=== PATIENT | female | born 1935 | race Caucasian/White ===

== ENCOUNTER 2025-09-28 11:08 | Emergency (ER) | payer MEDICARE, SELFPAY ==
[2025-09-28] VITALS (12 sets, daily range): BP systolic 101–150; BP diastolic 49–90; PULSE 79–131; RESP 15–20; TEMP 36.6–38; O2SAT 94–97; BMI 24.1
--- NOTE | ~2025-09-28 | XR_ITS ---
EXAMINATION: XR CHEST CLINICAL INFORMATION: cough COMPARISON: None available. TECHNIQUE: 2 views of the chest were obtained. FINDINGS: No significant abnormality is noted involving the heart, lungs, mediastinum, bony thorax or soft tissues. Catheter traversing the base of the neck and chest right of midline is probably related to a IT SOFTWARE [employer]INEER shunt. XR/XR chest 2V IMPRESSION: No acute disease. Electronically signed by: Den Arroyo MD 09/28/2025 01:53 PM EST
--- NOTE | ~2025-09-28 | MR_ITS ---
CLINICAL HISTORY: vasogenic edema ?underlying mass vs CVA? best obtainable, pt motion on images, blades and repeats attempted MR of the brain with and without contrast Comparison: CT/REG/MI/SR - CT HEAD WITHOUT IV CONTRAST - 09/28/25 12:09 EST Findings: Mass in the right middle cranial fossa measuring 3.8 x 3.0 x 3.6 cm favored to be extra-axial. The mass is isointense to hypointense to nguyen matter on T1 weighted images. It is mildly hyperintense on FLAIR/T2 weighted images. The mass demonstrates mild increased signal on the DWI images and mild decreased signal on the ADC map which likely indicates restricted diffusion. There is homogeneous enhancement on the postcontrast images. There is associated vasogenic edema in the right temporal lobe. Question of a dural tail best appreciated on the postcontrast images. No acute infarction, hemorrhage or herniation. There are few foci of susceptibility on the SWI images which could be the sequela of hypertensive microangiopathy. There is susceptibility in the region of encephalomalacia in the left hemisphere, likely indicating prior hemorrhage. No hydrocephalus. Ex vacuo dilatation of the atrium and posterior horn of the left lateral ventricle. Ventriculoperitoneal shunt catheter which enters via a right frontal yesika hole with the tip terminating in the left lateral ventricle. Mild amount gliosis around the catheter tract. Increased signal intensity is seen in the deep and periventricular white matter on the T2/FLAIR sequences, which most likely represents the sequela of moderate to severe chronic small vessel ischemic disease. Cystic encephalomalacia in the left parietal, occipital and temporal lobes. No extra-axial fluid collection. Unremarkable sella. Intact flow voids. Normal orbits. Trace mucosal thickening in the maxillary sinuses and bilateral ethmoid air cells. Mild amount of fluid signal within right mastoid air cells. The other paranasal sinuses and left mastoid air cells are clear. Question of signal abnormality in the left skull base involving the sphenoid bone may indicate osseous invasion, however abnormality is not seen on the CT. Impression: Right middle cranial fossa 3.8 cm extra-axial mass with restricted diffusion and associated vasogenic edema. A higher grade meningioma could be considered. Lymphoma and other malignant etiologies may also be considered. This document has been electronically signed by: Lisa Bill MD on 09/28/2025 19:31:31
--- NOTE | ~2025-09-28 | XR_ITS ---
EXAMINATION: XR KNEE, LEFT CLINICAL INFORMATION: knee pain, fall COMPARISON: None available. TECHNIQUE: AP and lateral views of the left knee. FINDINGS: Small amount joint fluid is visible. There is severe narrowing of the medial joint space. There is mild narrowing of the lateral joint space. There is chondrocalcinosis in the lateral greater than medial meniscus. Moderate size marginal osteophyte is are evident in the lateral compartment. There is also degenerative cystic change near the medial joint line. Multifocal atherosclerotic calcifications are present in the posterior thigh. No fracture is identified. 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 Electronically signed by: Den Arroyo MD 09/28/2025 01:52 PM EST
--- NOTE | ~2025-09-28 | CT_ITS ---
EXAMINATION: CT HEAD WITHOUT CONTRAST CLINICAL INFORMATION: Syncope, GROUNDMAN/LINEMAN shunt. COMPARISON: 12/05/2018 CT head. TECHNIQUE: Contiguous axial imaging was performed from the skull base to vertex without intravenous administration of contrast. This CT examination was performed using dose optimization techniques as appropriate, variously including the following: *Automated exposure control *Adjustment of mA and/or kV according to patient size (this includes techniques or standardized protocols for targeted exams where dose is matched to indication/reason for exam; i.e. extremities or head) *Use of iterative reconstruction technique FINDINGS: Right transfrontal ventriculostomy catheter is in place, with tip traversing the frontal horn of the left lateral ventricle and terminating at the foramen of Monro. Mild encephalomalacia is identified surrounding the catheter tract in the right frontal lobe. Compared with the prior examination, there is focal right temporal white matter hypoattenuation, which could represent edema, was not previously seen on the prior exam in this location. Underlying lesion is a possibility. 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 There is mild ex vacuo dilatation of the left lateral ventricle, particularly the body and atrium. There is no intracranial hemorrhage, and there is no extra-axial fluid collection. There is no mass affect. No CT evidence of acute territorial infarct. Ventricles, sulci, and cisterns are otherwise mildly diffusely prominent, in keeping with age-related cerebral and cerebellar volume loss. No hydrocephalus. No midline shift. Negative hyperdense MCA sign. Negative insular ribbon sign. Patchy periventricular and deep white matter hypoattenuation is consistent with moderate small vessel ischemic changes. Normal pituitary. Mild atheromatous calcification of the bilateral carotid siphons and V4 segments vertebral arteries bilaterally. Globes and orbital contents image normally. There are bilateral lens replacements. No extracranial soft tissue abnormalities. The paranasal sinuses, mastoid air cells, and tympanic cavities are normally aerated. No suspicious bony abnormalities. Ledger hole right frontal region. There are no acute fractures evident. CT/CT head/brain wo IV con IMPRESSION: 1. New region of possible vasogenic edema in the right temporal lobe, not seen in 2019 and possibly collections representative of an underlying lesion. This would be an unusual location for progressing white matter small vessel ischemic changes. No associated mass effect. Enhanced MRI may be of benefit for further elucidation. 2. Otherwise, chronic changes without acute intracranial abnormality. Electronically signed by: Vivek Gee MD 09/28/2025 12:45 PM EST
--- NOTE | 2025-09-28 11:24 | ED_ITS ---
[facility] - General Adult General Chief complaint: Syncope Stated complaint: passed out Time Seen by Provider: 09/28/25 11:23 Source: patient Mode of arrival: ambulatory Limitations: no limitations History of Present Illness ED Provider: Dr. Garvey [facility] narrative: This is a 89-year-old female history of BLUE SPLIT TRIMMER shunt placement, hypertension, CVA in the past presented hospital today for evaluation of a fall. Patient had a witnessed syncopal episode earlier today. Patient stated that she has been sick with a upper respiratory infection with nasal congestion and sore throat and a cough for 1 day now. Last night she had a syncopal episode. However this morning when patient woke up she also had another syncopal episode in front of her daughter. She has not complain of any chest pain or palpitation. Denies any headache currently. Not complaining of any diarrhea or vomiting. Denies any abdominal pain. Denies any dysuria. Related Data Allergies Allergy/AdvReac Type Severity Reaction Status Date / Time amoxicillin Allergy Unknown Unknown Verified 09/28/25 14:32 erythromycin base Allergy Unknown Anaphylaxis,difficulty Unverified 09/28/25 14:32 (ERYTHROMYCIN BASE) breathing mold (MOLD) Allergy Unknown Nasal Unverified 09/28/25 14:32 congestion ragweed pollen (RAGWEED) Allergy Unknown Nasal Unverified 09/28/25 14:32 congestion Review of Systems 2 Review of Systems: Pertinent review of systems as mentioned in [facility]. All other system otherwise negative. [facility] Past Medical History [facility] Narrative: Medical history as mentioned in [facility] Social History Social History Advance Directives: No Advance Directives Information Provided: Yes Physical Exam ED Exam Exam: General: Pleasant, no distress, interacting appropriately Head: Normacephalic, atraumatic ENT: oral mucosa dry, neck supple, no tracheal deviation Cardiovascular: Tachycardic rate, regular rhythm, no murmurs, rubbing, gallops Respiratory: CTAB, no wheeze, rales, rhonchi Gastrointestinal: Soft, non distended, non tender, non guarding Neurological: Awake and alert, no facial droop noted, no focal neurological deficits Skin: Warm and dry Psychiatric: Appropriate mood and thoughts Vital Signs: Vital Signs - 24 hr 09/28/25 11:37 09/28/25 12:29 09/28/25 14:23 Temperature 99.4 F Pulse Rate 131 H 130 H 99 Respiratory Rate 15 16 16 Blood Pressure 122/75 136/79 101/54 L Pulse Oximetry 95 95 Oxygen Delivery Method Room Air Room Air BMI result Body Mass Index 24.1 Medications Administered Generic Name Dose Route Start Last Admin Trade Name Katia PRN Reason Stop Dose Admin Lactated Ringer's 1,000 mls @ 999 mls/hr 09/28/25 14:30 09/28/25 14:23 Lr IV 09/28/25 15:30 999 mls/hr .Q1H1M JOSÉ MIGUEL Administration Discontinued Medications Generic Name Dose Route Start Last Admin Trade Name Katia PRN Reason Stop Dose Admin Acetaminophen 975 mg 09/28/25 11:41 09/28/25 12:17 Acetaminophen 325 Mg Tablet PO 09/28/25 11:42 975 mg ONCE ONE Administration Lactated Ringer's 1,000 mls @ 999 mls/hr 09/28/25 11:45 09/28/25 14:00 Lr IV 09/28/25 12:45 Infused .Q1H1M JOSÉ MIGUEL Infusion Medical Decision Making Medical Decision Making MDM Narrative: This is a 89-year-old female history of CVA [employer]MER shunt presented hospital today for a syncopal episode. We will obtain a EKG to assess for any signs of cardiac arrhythmia, we will also obtain a CT head to evaluate for any signs of hydrocephalus or intracranial process that may have caused her syncopal episode. We will obtain a chest x-ray. Patient does feel warm to me on evaluation. We will plan to give patient some Tylenol. A L IV fluid be provided the patient. Knee x-ray will be obtained for left knee pain from the fall. She patient is able to have full range of motion of the left lower extremity. Appears to be moving bilateral upper and lower extremities. We will obtain a CBC CMP lactic acid and blood culture for swab for COVID flu and RSV as well. We will screen patient for sepsis. She does not meet sepsis or SIRS criteria at this time. Patient's was able to bear weight on her left lower extremity after the fall. I have low suspicion for fracture. EKG shows atrial fibrillation rate at 121. New onset AFib. Patient's heart rate is altered unable to low 100s to 120. Does have leukocytosis 11.0. Tachycardic with a AFib, and elevated lactic acid at 2.1. I have low suspicion for sepsis for the patient however we will plan to cover patient with IV Levaquin. I think this is new onset AFib. Possible stroke. Given her syncopal history we will plan to admit patient for further observation. AFib rate is controlled at this time. Chest x-ray is unremarkable. Knee x-ray did not show any signs of fracture. Patient will be admitted to the hospital. I did attempted to find the patient's BLUE SPLIT TRIMMER shunt model. Unfortunately there was no card for the model. In the note from [facility]. It saids Delta 1.5. This was relay to MRI team. I did discuss with family and patient about emptying MRI to rule out stroke versus intracranial mass. They are amenable to this. Patient does have anxiety going to MRI machine. However we will need to figure out the exact mottled with a BLUE SPLIT TRIMMER shunt on prior to the MRI per MRI team recommendation. Patient was loaded with aspirin. Differential Diagnosis Differential Diagnoses: The differential diagnosis associated with the presentation includes Syncope, cardiac arrhythmia, dehydration, COVID flu RSV, BLUE SPLIT TRIMMER shunt malfunction, knee fracture Lab Data MDM Lab Attestation statement: I reviewed the patient's lab results. 09/28/25 12:59 09/28/25 12:59 Labs: Lab Results 09/28/25 Range/Units 12:59 WBC 11.0 H (4.8-10.8) X10*3/uL RBC 5.02 (4.20-5.50) X10*6/uL Hgb 14.8 (12.0-16.0) g/dl Hct 45.2 (37.0-47.0) % MCV 90.0 (80.0-98.0) fL MCH 29.5 (27.0-33.0) pg MCHC 32.7 (31.0-35.0) g/dl RDW 12.8 (11.0-16.0) % Plt Count 200 (160-400) X10*3/uL MPV 10.0 (9.4-12.3) fL Immature Gran % (Auto) 0.4 (0.0-0.4) % Neut % (Auto) 83.9 H (45-73) % Lymph % (Auto) 7.1 L (20-40) % [place] % (Auto) 7.9 (2-11) % Eos % (Auto) 0.0 (0-4) % Baso % (Auto) 0.7 (0-2) % Lymph # (Auto) 0.8 L (1.2-4.9) X10*3/uL [place] # (Auto) 0.9 (0.1-1.2) X10*3/uL Eos # (Auto) 0.0 (0.0-0.4) X10*3/uL Baso # (Auto) 0.1 (0.0-0.2) X10*3/uL Abs Immat Gran (auto) 0.04 H (0.00-0.03) X10*3/uL Absolute Neuts (auto) 9.2 H (2.0-8.3) x10*3/uL Absolute Nucleated RBC 0.000 (0.0-0.012) X10*3/uL Nucleated RBC % (auto) 0.0 (0.0-0.2) /100WBC Sodium 139 (135-145) mmol/L Potassium 4.0 (3.3-5.1) mmol/L Chloride 102 (96-108) mmol/L Carbon Dioxide 29 (22-29) mmol/L Anion Gap 12 (12-20) BUN 19 H (9-16) mg/dL Creatinine 0.98 (0.5-1.4) mg/dL Estim Creat Clear Calc 32.0 Estimated GFR 54 Random Glucose 119 H (60-115) mg/dL Lactic Acid 2.1 H* (0.5-2.0) mmol/L Calcium 9.1 (8.4-10.2) mg/dL Magnesium 1.9 (1.6-2.6) mg/dL Total Bilirubin 0.6 (0.0-1.0) mg/dL AST 25 (5-31) U/L ALT 18 (0-31) U/L Alkaline Phosphatase 91 (39-117) U/L Total Protein 7.2 (6.5-8.0) g/dL Albumin 4.5 (3.5-5.0) g/dL TSH 0.68 (0.32-4.0) uIU/mL Independent Interpretation I performed an independent interpretation of an: Plain X-Ray and CT Scan Radiology Impression Discussion of test interpretation with radiology: I have reviewed the radiologist's reading. Chronic Conditions Patient?s care impacted by: Hypertension CVA Critical Care Time Critical Care Time Critical Care Time: Yes Total Critical Care Time: 40 Attestation: Time is exclusive of separately billable procedures. Time includes: direct patient care, patient reassessment, coordination of patient care, interpretation of data (laboratory data, pulse oximetry, arterial blood gases and chest xrays), review of patient's medical records, medical consultation and documentation of patient care. Procedures excluded from critical care time: central intravenous line placement and electrocardiography. Discharge Plan Discharge Clinical Impression: Atrial fibrillation with RVR Syncope Qualifiers: Syncope type: unspecified Qualified Code(s): R55 - Syncope and collapse Patient Disposition: Admitted As Inpatient Print Language: Azeri
--- NOTE | 2025-09-28 11:39 | ECG_ITS ---
Test Reason : SYNCOPE Blood Pressure : */* mmHG Vent. Rate : 121 BPM Atrial Rate : * BPM P-R Int : * ms QRS Dur : 78 ms QT Int : 322 ms P-R-T Axes : * 10 36 degrees QTcB Int : 457 ms Atrial fibrillation with rapid ventricular response with premature ventricular or aberrantly conducted complexes Low voltage QRS Abnormal ECG When compared with ECG of 31-Aug-2015 08:57, Atrial fibrillation has replaced Sinus rhythm Vent. rate has increased by 68 bpm Criteria for Septal infarct are no longer Present T wave amplitude has decreased in Anterolateral leads Referred By: Cat Garvey Electronically Signed By: LISA GIFFORD MD
[2025-09-28] MEDS: Lactated Ringers 1,000 ML 999 ML IV ×2 (11:45→14:23)
--- NOTE | 2025-09-28 11:51 | PC.NURSE ---
Pt A&O X4 VSS Seen by provider. Connected to full monitor- ST no ectopy- provider aware. Pt denies CP SOB N/V, family states moving bowels more frequently (but formed) . IVinitiated. family at bedside
[2025-09-28 13:03] LABS: MANUAL DIFF FLAG NO
[2025-09-28 13:04] LABS: Hematocrit 45.2 % (37.0-47.0); Hemoglobin 14.8 g/dl (12.0-16.0); Imm Gran Abs Auto 0.04 X10*3/uL (0.00-0.03); Imm Gran Pct Auto 0.4 % (0.0-0.4); Lymphocytes Absolute Auto 0.8 X10*3/uL (1.2-4.9); Mean Corpuscular HGB Conc 32.7 g/dl (31.0-35.0); Mean Corpuscular Hemoglobin 29.5 pg (27.0-33.0); Mean Corpuscular Volume 90.0 fL (80.0-98.0); NRBC Abs Auto 0.000 X10*3/uL (0.0-0.012); NRBC Pct Auto 0.0 /100WBC (0.0-0.2); Platelet Count 200 X10*3/uL (160-400); Red Blood Count 5.02 X10*6/uL (4.20-5.50); White Blood Count 11.0 X10*3/uL (4.8-10.8)
[2025-09-28 13:25] LABS: Alanine Aminotransferase 18 U/L (0-31); Albumin Level 4.5 g/dL (3.5-5.0); Alkaline Phosphatase 91 U/L (39-117); Anion Gap 12 (12-20); Aspartate Amino Transferase 25 U/L (5-31); Blood Urea Nitrogen 19 mg/dL (9-16); Calcium 9.1 mg/dL (8.4-10.2); Carbon Dioxide 29 mmol/L (22-29); Chloride 102 mmol/L (96-108); Creatinine Clr Calc Pharmacy 32.0; Estimated Glomerular Filt Rate 54; Magnesium 1.9 mg/dL (1.6-2.6); Potassium 4.0 mmol/L (3.3-5.1); Sodium 139 mmol/L (135-145); Total Protein 7.2 g/dL (6.5-8.0)
[2025-09-28 13:39] LABS: Thyroid Stimulating Hormone 0.68 uIU/mL (0.32-4.0)
--- NOTE | 2025-09-28 14:24 | PC.NURSE ---
Pt remains A&O X3 FR improved by now hypotensive. Provider notified - states to hold cardizem and give IV bolus again. No complaints-
--- NOTE | 2025-09-28 14:38 | PC.NURSE ---
Pt remains A&O X4 VSS with Iv bolus infusing- No complaints- no distress.
[2025-09-28 14:50] LABS: Resp Syncy Virus RNA Qual PCR NEGATIVE (Negative); SARS COV2 PCR INHOUSE NEGATIVE (Negative)
[2025-09-28 15:01] LABS: Reflex Lactate? Lactic Acid Added
--- NOTE | 2025-09-28 15:05 | PHA.MEDREC ---
Pharmacy Consult ? Medication Reconciliation Pharmacy has completed the medication reconciliation. Spoke with family at bedside, they presented a list.
--- NOTE | 2025-09-28 15:18 | PM.IMHP ---
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 According to the patient's daughter the patient reported that Saturday she started to feel unwell with upper respiratory symptoms then Saturday night or at some point Saturday morning the patient had a fall but she could not remember when. Apparently the patient's daughter called her and the patient did not seem like herself. The patient's friend went to see the patient and the patient went to the bathroom and apparently had a syncopal episode while on the toilet. Her friend was able to walker to the couch and an ambulance was called. EMS check vital signs but the patient declined to go to the hospital. Sometime later the patient went to the bathroom again and had the same syncopal episode on the toilet. By then her daughter had showed up and EMS was then called. In the ED, Lactic acid was noted to be elevated 2.1, influenza A positive, head CT showed new region of possible vasogenic edema in the right temporal lobe with no associated mass effect otherwise chronic changes without acute intracranial abnormality. Patient does have a history of a AMBULANCE ATTENDANT shunt after previous stroke about 10 years ago. MRI was ordered and plan is to admit patient for syncope, influenza. Review of Systems Review of Systems: Denies any recent fever chills or decrease in appetite respiratory denies any shortness of breath or cough cardiovascular denied chest pain gastrointestinal denies any dysphagia abdominal pain nausea vomiting or diarrhea genitourinary denies any dysuria frequency or hematuria musculoskeletal denies any joint pain or swelling neuropsych denies any weakness or seizures all other systems reviewed are negative [facility] Medical History (Updated 09/28/25 @ 15:22 by Juliet Tanner NP) Stroke Hypertension Surgical History (Updated 09/28/25 @ 15:22 by Juliet Tanner NP) S/P AMBULANCE ATTENDANT shunt Social History Advance Directives: No Advance Directives Information Provided: Yes Meds Allergies Allergy/AdvReac Type Severity Reaction Status Date / Time amoxicillin Allergy Unknown Unknown Verified 09/28/25 14:32 erythromycin base Allergy Unknown Anaphylaxis,difficulty Verified 09/28/25 14:58 (ERYTHROMYCIN BASE) breathing mold (MOLD) Allergy Unknown Nasal Verified 09/28/25 14:58 congestion ragweed pollen (RAGWEED) Allergy Unknown Nasal Verified 09/28/25 14:58 congestion Active Medications: Current Medications Lactated Ringer's (Lr) 1,000 mls @ 999 mls/hr IV .Q1H1M JOSÉ MIGUEL Stop: 09/28/25 15:30 Last Admin: 09/28/25 14:23 Dose: 999 mls/hr Levofloxacin (Levaquin) 500 mg in 100 mls @ 100 mls/hr IV ONCE ONE Stop: 09/28/25 15:32 Home Medications ?Medication ?Instructions ?Recorded ?Confirmed ?Last Taken ?Type amlodipine 2.5 mg tablet 2.5 mg PO DAILY 09/28/25 09/28/25 09/27/25 History docusate sodium 100 mg capsule 100 mg PO DAILY 09/28/25 09/28/25 09/27/25 History losartan 100 mg tablet 100 mg PO DAILY 09/28/25 09/28/25 09/27/25 History metoprolol succinate 50 mg 50 mg PO DAILY 09/28/25 09/28/25 09/27/25 History tablet,extended release 24 hr vitamins A,C,U-oxog-pqscxa 4,296 1 cap PO DAILY 09/28/25 09/28/25 09/28/25 History mcg-226 mg-90 mg capsule (PreserVision AREDS) Physical Exam Vital Signs and Narrative: Vital Signs: Last Vital Signs Temp 99.3 F 09/28/25 11:50 Pulse 85 09/28/25 14:39 Resp 16 09/28/25 14:39 BP 103/60 09/28/25 14:39 Pulse Ox 94 09/28/25 14:39 O2 Del Method Room Air 09/28/25 14:39 BMI result Body Mass Index 24.1 Appearing in no acute distress head is normocephalic atraumatic eyes pupils are PERRLA sclera is anicteric mouth throat mucous membranes are intact and moist neck is supple no lymphadenopathy, no JVD noted lung sounds are clear to auscultation heart iregular positive bowel sounds, abdomen is soft, nontender neuro patient is alert x3, no focal deficits Results Labs 09/28/25 12:59 09/28/25 12:59 Labs: Laboratory Results - last 24 hr 09/28/25 09/28/25 12:59 13:58 MCV 90.0 MCH 29.5 MCHC 32.7 RDW 12.8 Plt Count 200 MPV 10.0 Immature Gran % (Auto) 0.4 Neut % (Auto) 83.9 H Lymph % (Auto) 7.1 L [place] % (Auto) 7.9 Eos % (Auto) 0.0 Baso % (Auto) 0.7 Lymph # (Auto) 0.8 L [place] # (Auto) 0.9 Eos # (Auto) 0.0 Baso # (Auto) 0.1 Abs Immat Gran (auto) 0.04 H Absolute Neuts (auto) 9.2 H Absolute Nucleated RBC 0.000 Nucleated RBC % (auto) 0.0 Anion Gap 12 Estim Creat Clear Calc 32.0 Estimated GFR 54 Random Glucose 119 H Lactic Acid 2.1 H* Calcium 9.1 Magnesium 1.9 Total Bilirubin 0.6 AST 25 ALT 18 Alkaline Phosphatase 91 Total Protein 7.2 Albumin 4.5 TSH 0.68 Influenza Type A (PCR) POSITIVE A Influenza Type B (PCR) NEGATIVE RSV RNA Qual (PCR) NEGATIVE SARS-CoV-2 RNA (RT-PCR) NEGATIVE Imaging Radiologist's Impressions: Impressions Head CT 09/28/25 12:09 IMPRESSION: 1. New region of possible vasogenic edema in the right temporal lobe, not seen in 2019 and possibly sales account representative of an underlying lesion. This would be an unusual location for progressing white matter small vessel ischemic changes. No associated mass effect. Enhanced MRI may be of benefit for further elucidation. 2. Otherwise, chronic changes without acute intracranial abnormality. Electronically signed by: Vivek Gee MD 09/28/2025 12:45 PM EST RP Chest X-Ray 09/28/25 13:31 IMPRESSION: No acute disease. 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 Electronically signed by: Den Arroyo MD 09/28/2025 01:52 PM EST RP Assessment and Plan (1) Atrial fibrillation with RVR: Status: Acute Plan 89-year-old woman admitted after episodes of syncope and found to have influenza a. Patient developed a upper respiratory infection on Saturday and possibly developed atrial fibrillation from the which developed 2 episodes of syncope from dehydration. New onset atrial fibrillation Monitor on telemetry Cardiology consultation discuss regarding anticoagulation Echocardiogram Heart rate controlled after dose of diltiazem Start diltiazem 30 q.6H Syncope Unknown etiology although patient did syncopize while on the toilet so maybe vasovagal Monitor on telemetry Orthostatic blood pressures Finding on head CT with possible new region of vasogenic edema, patient does have history of a AMBULANCE ATTENDANT shunt, MRI pending Influenza a and start Tamiflu No hypoxia noted Supportive care Hypertension with soft blood pressures Hold amlodipine, losartan and metoprolol DVT prophylaxis with Lovenox Full code Quality Stroke Does the patient have a stroke diagnosis?: No VTE Prior VTE?: No VTE Risk Level:: Medical - moderate - high VTE Device Contraindication: Treatment Not Indicated VTE Drug Contraindication: N/A - Med Ordered
--- NOTE | 2025-09-28 15:19 | PC.NURSE ---
This RN talked with family about getting information on [employer] shunt. Pt family able to provide a picture of [place] paperwork on the shunt, image sent to MRI, copy of eye implants also sent with MRI paperwork. This RN specifically talked with Nadine from MRI to go over everything, copies placed in pt chart at this time. Pt has had MRI at this time with [employer] shunt and eye implants with no issues.
[2025-09-28 16:14] LABS: Appearance Urine Clear; Glucose Urine UA Negative (Negative); PH 6.5 (5.0-9.0); Specific Gravity - Urine 1.010 (1.005-1.025)
[2025-09-28 16:41] LABS: ~Lactic Acid-LAB USE ONLY 1.4 mmol/L (0.5-2.0)
--- NOTE | 2025-09-28 18:37 | PC.NURSE ---
pt back from MRI. ate dinner brought in by family. alert, oriented x4. sometimes forgetful. refused lovenox injection. ambulatory to bathroom with standby assist
--- NOTE | 2025-09-28 19:43 | HO.NURTONUR ---
Addendum entered by Berta Jaramillo RN 09/29/25 00:01: nurse to nurse report called to Irina HAMPTON at [facility] where pt is being transferred Original Note: pt from home biba after 2 syncopable episodes at home. Episodes witnessed by family at home. Pt states she has been recently sick with upper respiratory symptoms that started on saturday and several syncopable episodes since. While in the ED labs revealed lactic acid 2.1, positive for influenza A, and head ct showed new region of possible vasogenic edema in the right temporal lobe with no associated mass effect otherwise chronic changes without acute intracranial abnormality. Pt does have hx of [employer] shunt due to previous stroke about 10 years ago. Pt has MRI earlier today pending results at this time. Pt is caox3, forgetful at times, able to make her needs known and ambulates with steady gait and standby assist. Pt has 20G Iv in LAC and has been medicated per dec.
--- OUTSIDE RECORDS SUMMARY | 2025-09-28 20:50 | XMS_ITS | Encounter Summary ---
Author Organization [facility] Address [address] [place] [address] Phone Care Team Providers Care Plate Fitter Name Role Phone Mac Leary MD Primary Care Provider [phone] Encounter Details Date Type Department Care Team (Late st Contact Info) Description 09/28/2025 8:50 PM EST Hospital Encounter [facility] [address] [place] [address] Unknown, Unknown, Arrived Social History Tobacco Use Types Packs/Day Years Used Date Smoking Tobacco: Former Smokeless Tobacco: Never Education Answer Date Recorded Are you interested in more education? Not on chery e 02/15/2023 Are you concerned about learning? Not on file 02/15/2023 No 02/15/2023 No 02/15/2023 Digital Access Answer Date Recorded No 03/18/2023 No 03/18/2023 No 03/18/2023 Reliable internet access at home? Not on file 03/18/2023 Device with a working camera? Not on file Comments Unknown Sex and Gender Information Value Date Recorded Sex Assigned at Not on file Legal Sex Female 11:23 AM EST Gender Identity Not on file Sexual Orientation Not on file documented as of this encounter Plan of Treatment Not on file documented as of this encounter Procedures Procedure Name Priority Date/Time Associated Diagnosis Comments MRI BRAIN OUTSIDE (NO INTERPRETATION) Routine 09/28/2025 8:50 PM EST documented in this encounter Results * MRI Brain Outside (No Interpretation) (09/28/2025 8:50 PM EST) Narrative [facility] INTERFACES - 09/28/2025 8:50 PM EST This study is for PACS storage only and not for interpretation. us Unknown Unknown MD IMG OUTSIDE IMAGING W/OUT INT ERPRETATION Final Result [facility] INTERFACES documented in this encounter Visit Diagnoses Not on filedocumented in this encounter Care Teams Plate Fitter Relationship Specialty Start Date End Date Mac Leary MD [address] [place] [id number] PCP - General 04/20/14 documented as of this encounter Additional Source Comments The information contained in this document represents components of the legal health record. It is not the complete legal health record.[facility]
--- OUTSIDE RECORDS SUMMARY | 2025-09-28 23:27 | XMS_ITS | Data Portability ---
Author Organization [place] - [facility], Allergy Address [address] [address] Care Team Providers Care Mold Sheet Cleaner Name Role Phone PABLO DANIELS Primary Care Provider Assessment Encounter Date Assessment Date Assessment LastModified by Organization Details LastModified Time 11/05/2024 11/05/2024 Recommendations: Follow up with referring provider. Amplification, pending medical clearance. [email or web address] Not available 11/05/2024 09:44:17 11/05/2024 11/05/2024 88-year-old female seen with her daughter for sudden onset of dizziness and what she described as a blocked left ear. Her PCP treated her with a couple of courses of steroids she has not really noticed any improvement. Clinically she seems to be turning to fever her left ear. Audiometric testing shows asymmetric hearing loss right worse than left with discrimination score of 60% on the right and 92% on the left. Tuning forks were equivocal. I discussed with the patient and her daughter that given the time course and the inconsistencies, I would hold off on any injections of steroids into the ear, but would suggest we obtain an MRI scan to rule any growths or tumors [email or web address] Not available 11/05/2024 10:08:15 Plan of Treatment Reminders Order Date Submit Date Provider Last Modified By Organization Details Last Modified Time Details Appointments None recorded. Lab None recorded. Referral None recorded. Procedures None recorded. Surgeries None recorded. Imaging MRI, brain + internal auditory canal, w/wo contrast - MRI, BRAIN + INTERNAL AUDITORY CANAL, W/WO CONTRAST 2024 025 [facility] ([facility]), [address] [facility], [place], [address], 10:40:23 Medication Orders None recorded. Patient TargetsNo targets recorded. Patient InstructionsNo instructions recorded. Reason for Referral None Reported. Results Created Date Observation Date Name Description Value Unit Range Abnormal Flag Note LastModifiedBy Organization Detail LastModifiedTime 11/06/19 audio gram No observ ation record ed. BARCODE Not Available 2024 12:59:05 11/17/1911/14/2024 MRI, brain + brain stem, w/wo contr ast [facility] Access ion Number : [id number] Patien t Name: Hugh Jones Record Number : [id number] Date of : 1935 Date of Exam: 2024 Referr ing Physic jagjit: Fanny iraheta , Óscar [facility] [address] [place] [address] Exam: MR Brain (C-/C+ ) CPT 07155 Room Descri ption: [facility] Espr 1.5 MR Brain (C-/C+ ) CPT 94184 INDICA TION / CLINIC AL QUESTI ON: - Sensor ineura l hearin g loss, bilate ral, Clinic al Indica tion: Asymme tric sensor ineura l hearin g loss TECHNI QUE: Multip lanar, multis equenc e MRI of the brain was perfor med with and withou t intrav enous contra st. 10 mL Dotare m intrav enous contra st was admini stered . COMPAR CLARITA: MRI brain 019. FINDIN GS: IAC: There is no mass or abnorm al enhanc ement in the web design intern al audito ry canals or cerebe llopon vazquez angles . Course and calibe r of the 7th and 8th crania l nerves is normal bilate rally. Fluid signal is preser malcolm in the inner ear struct ures bilate rally. Brains tem demons trates normal signal . BRAIN and EXTRA- AXIAL SPACES : A homoge neousl y enhanc ing dural based mass is presen t in the right middle crania l fossa, measur ing 3.2 x 2.0 cm, new from 2019. This indent s the anteri or right tempor al lobe, withou t edema. There is no midlin e shift or other signif icant mass effect . Right fronta l approa ch ventri cular cathet er is in place. Left advocacy director ior pariet o-occi pital enceph alomal acia is noted, with curvil inear T2 hypoin tensit y compat ible with hemosi rita staini ng in this region , and ex vacuo dilata tion of the left occipi hannah horn, fairly simila r to prior. Patchy T2 prolon gation is noted in the perive ntricu lar, deep, and subcor tical white matter . No acute abnorm ality of the visual ized portio ns of the brain and extra- axial spaces . EXTRAC RANIAL SOFT TISSUE S: Bilate ral lens replac ements are noted. Visual ized portio ns of the extrac ranial soft tissue s are unrema rkable . BONES: Visual ized marrow signal is preser malcolm. IMPRES ALTAGRACIA: 1. No retroc ochlea r abnorm ality to explai n the patien t?s sympto ms. 2. Incide ntal 3 cm mening ioma in the right middle crania l fossa, indent ing the right anteri or tempor al lobe withou t edema, new from 2019. Follow up is recomm ended. A Non-Em ergent action sejal sam g will be commun icated to the orderi ng or respon sible provid er by the medica l record s depart ment. Receip t of this commun icatio n by the respon sible or orderi ng provid er will be docume nted in [facility] onnect Action riri Hartmann ID [id number]. Electr onical ly Signed By: Patricia bryan [facility] ([facility]) [address] [place], [address], 11/19/2024 15:47:23 11/18/19 25 11/18/2024 MRI, brain + brain stem, w/ contr ast No observ ation record ed. renny [facility] ([facility]) [address] [place], [address], 11/18/2024 17:33:10 Result Notes Documentation Provider Name and Address Organization Details Recorded Time Mri, Brain + Brain Stem, W/wo Contrast : [facility] Accession Number: [id number] Patient Name: Mdadie Franco Date of : 1935 Date of Exam: 11-14-2024 Referring Physician: Óscar Vera [facility] N[facility] [address] [place] [address] Exam: MR Brain (C-/C+) CPT 02628 [facility] ([facility]-/C[facility] CPT 28179 INDICATION / CLINICAL QUESTION: - Sensorineural hearing loss, bilateral, Clinical Indication: Asymmetric sensorineural hearing loss TECHNIQUE: Multiplanar, multisequence MRI of the brain was performed with and without intravenous contrast. 10 mL Dotarem intravenous contrast was administered. COMPARISON: MRI brain 02/13/2019. FINDINGS: IAC: There is no mass or abnormal enhancement in the internal auditory canals or cerebellopontine angles. Course and caliber of the 7th and 8th cranial nerves is normal bilaterally. Fluid signal is preserved in the inner ear structures bilaterally. Brainstem demonstrates normal signal. BRAIN and EXTRA-AXIAL SPACES: A homogeneously enhancing dural based mass is present in the right middle cranial fossa, measuring 3.2 x 2.0 cm, new from 2019. This indents the anterior right temporal lobe, without edema. There is no midline shift or other significant mass effect. Right frontal approach ventricular catheter is in place. Left posterior parieto-occipital encephalomalacia is noted, with curvilinear T2 hypointensity compatible with hemosiderin staining in this region, and ex vacuo dilatation of the left occipital horn, fairly similar to prior. Patchy T2 prolongation is noted in the periventricular, deep, and subcortical white matter. No acute abnormality of the visualized portions of the brain and extra-axial spaces. EXTRACRANIAL SOFT TISSUES: Bilateral lens replacements are noted. Visualized portions of the extracranial soft tissues are unremarkable. BONES: Visualized marrow signal is preserved. IMPRESSION: 1. No retrocochlear abnormality to explain the patient?s symptoms. 2. Incidental 3 cm meningioma in the right middle cranial fossa, indenting the right anterior temporal lobe without edema, new from 2019. Follow up is recommended. A Non-Emergent actionable finding will be communicated to the ordering or responsible provider by the medical records department. Receipt of this communication by the responsible or ordering provider will be documented in [employer] Actionable Findings, message ID [id number]. Electronically Signed By: Alicia martínez [facility] 11/19/2024 15:47:23 Problems Name Problem SNOMED Code Status Onset Date Resolution Date Notes Provider Name and Address Organization Details Recorded Time Sensorineural hearing loss of bilateral ears 932539238 Active 2024 Maicol COLBY [address] [place] [address],[address], [address], [facility] 09:43:55 Hydrocephalus 853397860 Active 2024 ÓSCAR SANTAMARIA MD [address] [place] [address], [phone], [facility] 10:07:06 Problem Notes None recorded. Procedures Surgical History Date Name Laterality Status Provider Name and Address Organization Details Recorded Time Comp Audio with Tymps - 00102 & 20472 completed Maicol COLBY [address] [place] [address],[address], [address], [facility] 11/05/2024 09:43:48 ventricular shunt to head or neck structure completed Al Mcdonald [facility] 11/05/2024 09:57:54 Imaging Results None recorded. Procedure Notes None recorded. Medical Equipment None Reported. Medications Name Sig Start Date Stop Date Status Note LastModified by Organization Details LastModified Time prednisone 10 mg tablet BY MOUTH ONCE DAILY TAKE 4 TABS FOR 2 DAYS,3 TABS FOR 2 DAYS,2 TABS FOR 2 DAYS,1 TAB FOR 2 DAYS active Not Available Not Available No t Available metoprolol succinate ER 50 mg tablet,extende d release 24 hr TAKE 1 TABLET BY MOUTH EVERY DAY active Not Available Not Available No t Available amlodipine 2.5 mg tablet TAKE 1 TABLET BY MOUTH EVERY DAY FOR 90 DAYS active Not Available Not Available No t Available prednisolone acetate 1 % eye drops,suspensi on PLACE 1 DROP INTO THE RIGHT EYE 4 TIMES A DAY FOR 4 DAYS active Not Available Not Available No t Available losartan 100 mg tablet TAKE 1 TABLET BY MOUTH EVERY DAY active Not Available Not Available No t Available Vitals Date Recorded Body height Body mass index (BMI) Body weight Provider Name and Address Organization Details Last Updated DateTime 11/05/2024 157.48 cm 23.2 kg/m2 51508.23 g Al Mcdonald [facility] 11/05/2024 09:57:03 Social History None recorded. Functional Status None recorded. Mental Status None recorded. Family History Nothing Reported. Medical History Condition Response Stroke Y Hypertension Y Gynecological HistoryNo gynecological history recorded. Obstetrics History GPAL:G 0 P 0 0 0 0 Past Encounters Encounter ID Performer Location Encounter Start Date Encounter Closed Date Diagnosis/Indication Diagnosis SNOMED-CT Code Diagnosis ICD10 Code Diagnosis IMO Codes Diagnosis Note [id number] ÓSCAR PARMAR MD [facility] [address] [address] 11/05/2024 08:47:13 11/05/2024 10:11:01 Sensorineural hearing loss of bilateral ears 205389294 H90.3 Hydrocephalus 468561024 G91.9 [id number] Maicol COLBY [facility] [address] [address] 11/05/2024 09:43:13 11/09/2024 07:40:17 Sensorineural hearing loss of bilateral ears 854890638 H90.3 Audiologic al evaluation results: Right ear: Mild sloping to severe sensorineu ral hearing loss with fair word recognitio n. Left ear: Mild sloping to severe sensorineu ral hearing loss with excellent word recognitio n. Tympanomet ry: Right Ear:Type A Left Ear:Type A Health Concerns Section Related Observation LastModified by Organization Detai ls LastModified Time None Recorded Concern Status LastModified by Organization Details LastModified Time None Recorded Advance Directives Directive None Recorded Payers Insurance Date Sequence Insurance Name Policy Number Policy Su Covered Member ID Su Member ID Guarantor Name 11/18/2024 2 [place] [id number] Maddie Franco [id number] Maddie Franco 11/18/2024 1 MED[place] [facility] Maddie Franco [id number] Maddie Franco Notes Date Note Type Note Provider Name and Address Organization Details Recorded Time 11/05/2024 text/html Mid September she had dizziness and left ear blockage for 24 hr. 1 week later saw PCP--treated with prednisone x2. No change with prednisone. Never noticed trouble with the right No tinnitus and no more vertigoHx of CVA and HOUSE WORKER GENERAL shuntSeen with daughter ÓSCAR MD TARIK [address] [facility],[address], [address], [place] [facility] 11/05/2024 10:09:54 11/05/2024 text/html Audiological Evaluation HPIReported by PatientHearing LossFor hearing loss perceived, patient reportshearing loss in the left ear onlybut reportssudden onset.DizzinessFor balance symptoms reported, patient reportsdizziness. Maicol COLBY [address] [facility],[place] [address], [place], [address], [facility] 11/05/2024 09:44:49 OBGyn Episode No OBEpisode recorded.
--- OUTSIDE RECORDS SUMMARY | 2025-09-28 23:27 | XMS_ITS | Clinical Summary ---
Author Organization [facility] Address [address] [facility] [address] [facility] [address] [place] [address] Phone Care Team Providers Care Clinical Leader Name Role Phone Mac Leary MD Primary Care Provider [phone] Allergies Active Allergy Reactions Criticality Noted Date Comments Erythromycin Base Itching 10/31/2013 Medications metoprolol succinate (TOPROL-XL) 50 MG 24 hr tablet Take 50 mg by mouth daily. Active dilTIAZem 180 mg 24hr Take 180 mg by mouth daily. Active docusate sodium (COLACE) 100 MG capsule Take 100 mg by mouth daily. Active Active Problems Problem Noted Date Diagnosed Date Cerebral hemorrhage 03/24/2014 Overview (12/10/2014): Cerebral hemorrhage Hypertensive disorder 03/24/2014 Overview (12/10/2014): Hypertensive disorder Encounters Date Type Department Care Team Description 09/28/2025 8:50 PM EST Hospital Encounter [facility] [address] [place] [address] Luz Mairna, Luz Marina, Arrived 09/28/2025 Ancillary Orders [facility] [address] [place] [address] Unknown, Unknown, 09/28/2025 Telephone [facility] [address] [facility], 7th Floor, [address] [place] [address] Renea Carlos RN from Last 3 Months Immunizations Immunization Administration Dates Next Due Influenza, Unspecified Formulation 11/03/2013(De ferred: Other) Pneumococcal, Unspecified Formulation 11/04/2013 (Deferred: Other) Social History Tobacco Use Types Packs/Day Years [...] on file Sexual Orientation Not on file Last Filed Vital Signs Vital Sign Reading Time Taken Comments Blood Pressure 144/72 02/11/2019 3:21 PM EDT Pulse 60 02/11/2019 3:21 PM EDT Temperature 36.8 C (98.3 F) 02/11/2019 3:21 PM EDT Respiratory Rate 17 11/25/2013 12:00 AM EST Oxygen Saturation 97% 02/11/2019 3:21 PM EDT Inhaled Oxygen Concentration - - Weight 63.5 kg (140 lb) 02/11/2019 3:21 PM EDT Height 158.1 cm (5' 2.25 ) 02/11/2019 3:21 PM ED T Body Mass Index 25.4 02/11/2019 3:21 PM EDT Plan of Treatment Health Maintenance Due Date Last Done Comments Adult Td,Tdap Booster 1935 DEPRESSION SCREENING 1949 PNEUMOCOCCAL VACCINES (50+ years) (1 of 1 - PCV) 01/01/1988 OSTEOPOROSIS SCREENING INITIAL (ONE-TIME) 2002 RSV VACCINE (1 - 1-dose 75+ series) 2012 ZOSTER VACCINES (2 of 2) 06/19/2018 04/24/2018 INFLUENZA VACCINE (#1) 2025 , 08/04/2018, 07/12/2017, Additional history exists COVID-19 VACCINE ( season) 2025 12/20/2020, 11/29/2020 HEPATITIS A VACCINES Aged Out No long er eligible based on patient's age to complete this topic HIB VACCINES Aged Out No longer eligi ble based on patient's age to complete this topic MENINGOCOCCAL VACCINES (ACWY) Aged Out No longer eligible based on patient's age to complete this topic MENINGOCOCCAL VACCINES (B) Aged Out N o longer eligible based on patient's age to complete this topic Medical Devices Implanted Type Area Embedded Case Manager Device Identifier Shelf Expiration Date Model / Serial / Lot Medtronic Delta Non Programmable Shunt Description:Safe to 3T per m b-datum Procedures Procedure Name Priority Date/Time Associated Diagnosis Comments MRI BRAIN OUTSIDE (NO INTERPRETATION) Routine 09/28/2025 8:50 PM EST from Last 3 Months Results * MRI Brain Outside (No Interpretation) (09/28/2025 8:50 PM EST) Narrative [facility] INTER[facility] - 09/28/2025 8:50 PM EST This study is for PACS storage only and not for interpretation. us Unknown Unknown MD IMG OUTSIDE IMAGING W/OUT INT ERPRETATION Final Result [facility] INTERFACES from Last 3 Months Insurance MEDICARE PART A & B [employer] MEDEX SUPPLEMENT MEDICARE PART A & B [employer] MEDEX SUPPLEMENT MEDICARE PART A & B [employer] Standard MEDEX SUPPLEMENT MEDICARE PART A & B [employer] Standard MEDEX SUPPLEMENT MEDICARE PART A & B [employer] MEDEX SUPPLEMENT MEDICARE PART A & B [employer] Standard MEDEX SUPPLEMENT MEDICARE PART A & B Member Subscriber Plan / Payer (Ef fective 2002-) Name:Joan Maddie Rogelio Member ID:[id number] Relation to Subscriber:Self Name:Maddie Franco Rogelio Subscriber ID:[id number] Payer ID:[id number] Group ID:Not on file Type:Medicare Address: [employer] [facility] [address] [address] [facility] MEDEX SUPPLEMENT MEDICARE PART A & B [employer] Standard MEDEX SUPPLEMENT MEDICARE PART A & B Athletic Standard MEDEX SUPPLEMENT Advance Directives For more information, please contact: [phone] (9AM - 5PM [facility], Saturday-Saturday) Documents on File Type Date Recorded Patient Card Game Operator Expl anation Advance Directive - Non Epic LMR 12/22/2013 12:00 AM Care Teams Clinical Leader Relationship Specialty Start Date End Date Mac Leary MD [address] [place] [address] PCP - General 04/20/14 Additional Source Comments The information contained in this document represents components of the legal health record. It is not the complete legal health record.[facility]
--- OUTSIDE RECORDS SUMMARY | 2025-09-28 23:27 | XMS_ITS | Encounter Summary ---
Author Organization [facility] Address [address] [facility] [address] [place] [address] Phone Care Team Providers Care Banner Painter Name Role Phone Mac Leary MD Primary Care Provider [phone] Encounter Details Date Type Department Care Team (Late st Contact Info) Description 09/28/2025 Telephone [facility] [address] [facility], 7th Floor, [address] [place] [address] Renea Carlos RN [address] [place] [address] [email or web address] Social History Tobacco Use Types Packs/Day Years [...] on file documented as of this encounter Progress Notes * Renea Carlos RN - 09/28/2025 2:36 PM EST We received a message on the answering service line for the clinical access team for the neurosurgery department at [facility]. The clinical access team returned a phone call to Mac, the patient's son. Mac left a message with the answering service stating, ???Maddie is in the hospitaland they want to do an MRI but they need info on the shunt. They do not have a card with that info. Please call Mac DWAINE as they are waiting for make and model of shunt before MRI can be done. They want to do the MRI DWAINE and asks for a call back DWAINE?? . This RN spoke with Mac, the patient's son. This RN advised that they would need to reach out to [facility] Medical Records to request the operative report from 2013. The operative report from 2013 would include the information regarding the make and number of the shunt. Mac responded, ???You can't just give this information to me??? . Mac inquired if this RN could reach out to [facility] medical records on their behalf. This RN advised that she cannot provide this information and the request would need to be submitted to [facility] medical records. Mac stated that Maddie is currently in the emergency department and stated that the ER providers have also been calling us. Of note, we have not received any additional phone calls. Mac took down the number for [facility] medical records and thanked this RN for the call. documented in this encounter Plan of Treatment Not on file documented as of this encounter Visit Diagnoses Not on filedocumented in this encounter Care Teams Banner Painter Relationship Specialty Start Date End Date Mac Leary MD [address] [place] [address] PCP - General 7/1/14 documented as of this encounter Additional Source Comments The information contained in this document represents components of the legal health record. It is not the complete legal health record.[facility]
--- OUTSIDE RECORDS SUMMARY | 2025-09-28 23:27 | XMS_ITS | Encounter Summary ---
Author Organization [facility] Address [address] [facility] [address] [facility] [address] [place] [address] Phone Care Team Providers Care Dip Dyer Name Role Phone Mac Leary MD Primary Care Provider [phone] Encounter Details Date Type Department Care Team (Late st Contact Info) Description 09/28/2025 Ancillary Orders [facility] Imaging [address] [place] [address] Unknown, Unknown, Social History Tobacco Use Types Packs/Day Years [...] on file documented as of this encounter Results * MRI Brain Outside (No Interpretation) (09/28/2025 8:50 PM EST) Narrative [facility] [place] - 09/28/2025 8:50 PM EST This study is for PACS storage only and not for interpretation. us Unknown Unknown MD VOSS OUTSIDE IMAGING W/OUT INT ERPRETATION Final Result [facility] documented in this encounter Visit Diagnoses Not on filedocumented in this encounter Care Teams Dip Dyer Relationship Specialty Start Date End Date Mac Leary MD [address] [place] [address] PCP - General 04/20/14 documented as of this encounter Additional Source Comments The information contained in this document represents components of the legal health record. It is not the complete legal health record.[facility]
--- OUTSIDE RECORDS SUMMARY | 2025-09-28 23:27 | XMS_ITS | Encounter Summary ---
Author Organization [facility] Address [address] [place] [address] Phone Care Team Providers Care Tool Repairer Bench Name Role Phone Mac Leary MD Primary Care Provider [phone] Encounter Details Date Type Department Care Team (Late st Contact Info) Description 02/11/[address] [facility] MRI. 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 It is not the complete legal health record.[facility]
[2025-09-29 00:01] VITALS: BP 132/79; PULSE 83; RESP 16; TEMP 36.8; O2SAT 97
== END 2025-09-29 00:03 | disposition short-term general hospital (02) ==
LOC: HO.ED 14:40 → HO.EDOVER 16:12 → HO.IMC 19:42 → HO.ED 21:13
PROVIDERS: Student in an Organized Health Care Education/Training Program; Emergency Provider Emergency Medicine; PCP Internal Medicine; Visit Provider Nurse Practitioner Acute Care
DX: I48.20 Chronic atrial fibrillation, unspecified (principal); R55 Syncope and collapse; I10 Essential (primary) hypertension; R94.31 Abnormal electrocardiogram [ECG] [EKG]; R05.9 Cough, unspecified; M25.562 Pain in left knee; Z03.818 Encounter for observation for suspected exposure to other biological agents ruled out; Z86.73 Personal history of transient ischemic attack (TIA), and cerebral infarction without residual deficits; Z91.81 History of falling
CPT/HCPCS: 36415; 70450; 70553; 71046; 73560; 80053; 81003; 83605; 83735; 84443; 85025; 87040; 87637; 93005; 94640; 96361; 96374; 99285; 99291; A9585; J1956; J7120

== ENCOUNTER → 2025-09-28 11:39 | Outpatient (BNV) | payer MEDICARE, SELFPAY | PROVIDERS: Admitting Provider Nurse Practitioner Acute Care; Emergency Provider Student in an Organized Health Care Education/Training Program; PCP Internal Medicine; Visit Provider Internal Medicine Cardiovascular Disease | DX: I48.91 Unspecified atrial fibrillation (principal); I49.3 Ventricular premature depolarization | CPT/HCPCS: 93010 ==

== ENCOUNTER → 2025-09-28 11:41 | Outpatient (BNV) | payer MEDICARE, SELFPAY | PROVIDERS: Emergency Provider Student in an Organized Health Care Education/Training Program; PCP Internal Medicine; Visit Provider Radiology Diagnostic Radiology | DX: G93.6 Cerebral edema (principal); R55 Syncope and collapse; I67.82 Cerebral ischemia; R05.9 Cough, unspecified; M25.562 Pain in left knee; M17.12 Unilateral primary osteoarthritis, left knee; Z04.3 Encounter for examination and observation following other accident | CPT/HCPCS: 70450; 70553; 71046; 73560 ==

== ENCOUNTER → 2025-09-28 11:53 | Outpatient (BNV) | payer MEDICARE, SELFPAY | PROVIDERS: Emergency Provider Student in an Organized Health Care Education/Training Program; PCP Internal Medicine; Visit Provider Nurse Practitioner Acute Care | DX: I48.91 Unspecified atrial fibrillation (principal); R55 Syncope and collapse | CPT/HCPCS: 99222 ==